=== PATIENT | female | born 1945 | race Caucasian/White ===

== ENCOUNTER 2016-09-27 10:18 | Emergency (ER) | payer OTHER, MEDICARE ==
[~2016-09-27] VITALS: Ht 165.1 cm; Wt 61.2 kg
[~2016-09-27 10:18] MED LIST: AUGMENTIN 875875 MG PO; AZITHROMYCIN500 MG PO; BACTRIM DS 8001 TAB PO; DULOXETINE HCL60 MG PO; SYMBICORT 160/41 PUF INH
[2016-09-27 10:28] VITALS: BP 123/80
--- NOTE | 2016-09-27 10:41 | ED UPPER/LOWER EXTREMITY COMPL ---
History of Present Illness General Chief Complaint: Upper Extremity Injury Stated Complaint: RT ELBOW PAIN Source: patient, old records Exam Limitations: no limitations Vital Signs & Intake/Output Vital Signs & Intake/Output Vital Signs Date Time Temp Pulse Resp B/P Pulse O2 O2 Flow FiO2 Ox Delivery Rate 09/27 1028 98.4 86 18 123/80 100 Room Air Allergies Coded Allergies: Sulfa (Sulfonamide Antibiotics) (Intermediate, HIVES, HEADACHE 12/08/15) aspirin (Intermediate, FACIAL SWELLING 12/08/15) gluten (ABDOMINAL PAIN 12/08/15) milk (DIARRHEA 12/08/15) Reconcile Medications Duloxetine HCl 60 MG CAPSULE. 1 CAP PO DAILY FIBROMYALGIA (Reported) Triage Note: 70 Y/O FEMALE C/O SWELLING TO R ELBOW S/P "BANGING" IT A FEW DAYS AGO. STATES IT WAS SORE FOR A FEW DAYS BUT THEN PT WOKE TODAY WITH SWELLING. DENIES OTHER COMPLAINTS Triage Nurses Notes Reviewed? yes Onset: Abrupt Duration: day(s): (2), constant Timing: recent history Severity: mild Severity Numbers: 3 Pain/Injury Location: Right: Elbow. Method of Injury: direct blow Modifying Factors: Worsens With: movement. Associated Symptoms: swelling HPI: This 70-year-old female with history of ulcerative colitis and fibromyalgia presents complaining of a 2 day history of dorsal right elbow pain that came on after she banged it on a kitchen counter. She states that since then she's had bruising and swelling over her elbow with pain with palpation and range of motion of the elbow. There is no difficulty with range of motion of the elbow, no shoulder restraint and pain. She is not taken anything for her symptoms. No numbness or tingling no difficulty with range of motion of the hand or wrist (DACIA KENNEDY,DAVID) Past History Travel History Traveled to [place] past 21 day No Medical History Any Pertinent Medical History? see below for history Neurological: NONE EENT: NONE Cardiovascular: NONE Respiratory: obstructive sleep apnea, pneumonia Gastrointestinal: ULCERATIVE, NO MILK AND NO GLUTEN Hepatic: NONE Renal: NONE Musculoskeletal: FIBROMYALGIA Psychiatric: NONE Endocrine: NONE Blood Disorders: NONE Cancer(s): NONE MANAGER ICU/Reproductive: NONE Surgical History Surgical History: RIGHT KIDNEY SURGERY Psychosocial History Who do you live with Spouse Services at Home None What is your primary language Polish Tobacco Use: Quit >30 days ago Family History Family History, If Any: MOTHER FH: congenital heart problem Hx Contributory? No (DAVID LAWSON) Review of Systems Review of Systems Constitutional: Reports: see HPI. All Other Systems: Reviewed and Negative Comments Review of systems: See HPI, All other systems negative. Constitutional, no chills no fever, no malaise HEENT: no sore throat no congestion, no ear pain Cardiovascular: No chest pain , no palpitation Skin, no rashes, no change in skin Respiratory: No dyspnea no cough no sputum GI: No nausea no vomiting, no diarrhea : No dysuria Muscle skeletal: oint pain, no joint swelling, no back pain Neurologic: No numbness no headache Psych: No stress Heme/endocrine: No bruising no bleeding Immunology: No lymphadenopathy (DAVID LAWSON) Physical Exam Physical Exam General Appearance: well developed/nourished, no apparent distress, alert, awake Comments: Well-developed well-nourished patient in no apparent distress. HEENT: Atraumatic, extraocular motion intact Neck: Supple, FROM Back: FROM Cardiovascular: Regular rate and rhythms no murmurs Respiratory:No respiratory distress. Patient speaking in full complete sentences. Shoulder: Atraumatic/Stable. FROM . Elbow: Healing ecchymosis and mild swelling noted over the olecranon PROCESS OF THE RIGHT ELBOW, tenderness to palpation or range of motion skin is intact Upper arm/Forearm: Atraumatic. Nontender. No edema, 5 out of 5 charge authorizer strength noted to bilateral upper extremities Hand/Wrist: Atraumatic/stable. Skin intact. FROM Pulses: Normal/equal radial pulses bilaterally. Brisk cap refill LOWER Extremities: full range of motion Neuro: Alert and oriented x3 Skin: Warm & dry;No appreciable rash on exposed skin Psych: Mood affect normal, normal memory normal judgment. (DAVID LAWSON) Progress Differential Diagnosis: contusion, dislocation, fracture, sprain, tendon injury, bursitis Diagnostic Imaging: Viewed by Me: Radiology Read. Discussed w/RAD: Radiology Read. Radiology Impression: ATIENT: SURINDER CORRALES PRESENT AGE: 70 PATIENT ACCOUNT NO: [id number] : 43 LOCATION: [facility] ORDERING PHYSICIAN: DAVID KENNEDY SERVICE DATE: 09/27/16 EXAM TYPE: RAD - XRY- ELBOW 3 OR MORE VIEWS, R EXAMINATION: XR ELBOW, RIGHT CLINICAL INFORMATION: Right elbow pain status post trauma. COMPARISON: None TECHNIQUE: Right elbow 4 views. of the right elbow. FINDINGS: Soft tissue swelling is noted over the posterior aspect of the elbow. There is a tiny bone fragment adjacent to the proximal ulna which could represent tiny avulsion fracture or chronic calcification at the triceps insertion. No other abnormality. Alignment is normal. No joint effusion is seen. IMPRESSION: Question tiny avulsion fracture olecranon process associated soft tissue swelling. DICTATED BY: AISHWARYA GREENBERG MD DATE/TIME DICTATED:09/27/161110 STAFF RADIATION THERAPIST:RANDY DATE/ TIME TRANSCRIBED:09/27/161110 CONFIDENTIAL, DO NOT COPY WITHOUT APPROPRIATE AUTHORIZATION. <Electronically signed in Other Vendor System> SIGNED BY: AISHWARYA GREENBERG MD 09/27/16 1116 (DAVID LAWSON) Plan of Care: Orders Procedure Date/time Status Durable Medical Equipment 09/27 1047 Active X-ray ordered patient medicated with Tylenol Discussed with her her x-ray results- posteriro long arm splint applied by bella storey intact prior to and after applicaton of splint. Sling was applied advised need for Tylenol for pain as needed follow-up with orthopedist provided as well as primary care physician return with any concerns she feels comfortable with plan (DAVID LAWSON) Departure Departure Time of Disposition: 1134 Disposition: HOME OR SELF CARE Condition: Stable Clinical Impression Primary Impression: Avulsion fracture Secondary Impressions: Traumatic bursitis Referrals: ALYSSA LINDER DO (PCP/Family) FRANCISCO J DIAL,VALERY Perez Additional Instructions: rest, tylenol for pain, keep arm elevated, follow-up with orthopedist Dr. santiago. Keep splint on at all times sling for comfort Departure Forms: Customer Survey General Discharge Information (DAVID LAWSON) PA/REGISTERED NURSE SURGICAL SERVICES Co-Sign Statement Statement: ED Attending supervision documentation- [x] I saw and evaluated the patient. I have also reviewed all the pertinent lab results and diagnostic results. I agree with the findings and the plan of care as documented in the PA's/REGISTERED NURSE SURGICAL SERVICES's documentation. [] I have reviewed the ED Record and agree with the PA's/REGISTERED NURSE SURGICAL SERVICES's documentation. [] Additions or exceptions (if any) to the PAs/REGISTERED NURSE SURGICAL SERVICES's note and plan are summarized below: [] (GWENDOLYN DISLA DO) Procedures Splinting Location: RUE Manual Alignment Performed: No Hand-Made Type: orthoglass Splint: POSTERIOR LONG ARM Splint Applied By: splint applied by me Pre-Proc Neuro Vasc Exam: normal Post-Proc Neuro Vasc Exam: normal (DAVID LAWSON)
--- NOTE | 2016-09-27 11:16 | RADIOLOGY REPORT ---
EXAMINATION: XR ELBOW, RIGHT CLINICAL INFORMATION: Right elbow pain status post trauma. COMPARISON: None TECHNIQUE: Right elbow 4 views. of the right elbow. FINDINGS: Soft tissue swelling is noted over the posterior aspect of the elbow. There is a tiny bone fragment adjacent to the proximal ulna which could represent tiny avulsion fracture or chronic calcification at the triceps insertion. No other abnormality. Alignment is normal. No joint effusion is seen. IMPRESSION: Question tiny avulsion fracture olecranon process associated soft tissue swelling.
== END 2016-09-27 11:51 ==
LOC: ERH 10:18
DX: M71.521 Other bursitis, not elsewhere classified, right elbow (principal); W22.09XA Striking against other stationary object, initial encounter
CPT/HCPCS: 73080-RT

== ENCOUNTER 2016-10-05 19:55 | Emergency (ER) | payer OTHER, MEDICARE ==
--- NOTE | 2016-10-05 20:56 | ED UPPER/LOWER EXTREMITY COMPL ---
History of Present Illness General Chief Complaint: Hand or Wrist Injury Stated Complaint: "?RT WRIST AND HAND INJURY S/P FALL -LOC" Source: patient Exam Limitations: no limitations Vital Signs & Intake/Output Vital Signs & Intake/Output Vital Signs Date Time Temp Pulse Resp B/P Pulse O2 O2 Flow FiO2 Ox Delivery Rate 10/05 2120 98.5 92 18 128/78 97 Room Air 10/05 2006 98.5 88 22 126/82 97 Room Air Allergies Coded Allergies: Sulfa (Sulfonamide Antibiotics) (Intermediate, HIVES, HEADACHE 12/08/15) aspirin (Intermediate, FACIAL SWELLING 12/08/15) gluten (ABDOMINAL PAIN 12/08/15) milk (DIARRHEA 12/08/15) Reconcile Medications Duloxetine HCl 60 MG CAPSULE.DR 1 CAP PO DAILY FIBROMYALGIA (Reported) Oxycodone HCl/Acetaminophen (Percocet 5-325 MG Tablet) 5 MG-325 MG TABLET 1 TAB PO TID PRN pain Triage Note: PER PT FELL 10 MINUTES AGO ON RT WRIST IN [place]AY, [place] PAIN NO HEAD STRIKE GIVEN TYLENOL Triage Nurses Notes Reviewed? yes HPI: 70-year-old female here with complaints of severe throbbing right wrist pain and swelling after she tripped in her driveway prior to arrival while smelling falling on outstretched hand injuring her right wrist. No previous injuries to the wrist, she does have a previous elbow fracture on that side. She denies any other injuries, no shortness far, is worse with palpation and motion. No neurologic symptoms. (XIOMARA ISAAC) Past History Travel History Traveled to [place] past 21 day No Medical History Any Pertinent Medical History? see below for history Neurological: NONE EENT: NONE Cardiovascular: NONE Respiratory: obstructive sleep apnea, pneumonia Gastrointestinal: ULCERATIVE, NO MILK AND NO GLUTEN Hepatic: NONE Renal: NONE Musculoskeletal: FIBROMYALGIA Psychiatric: NONE Endocrine: NONE Blood Disorders: NONE Cancer(s): NONE AUTOMOTIVE GLAZIER/Reproductive: NONE Surgical History Surgical History: RIGHT KIDNEY SURGERY Psychosocial History Who do you live with Spouse Services at Home None What is your primary language [place] Citizen Tobacco Use: Never used Family History Family History, If Any: MOTHER FH: congenital heart problem Hx Contributory? No (XIOMARA ISAAC) Review of Systems Review of Systems Constitutional: Reports: see HPI. EENTM: Reports: no symptoms. Respiratory: Reports: no symptoms. Cardiovascular: Reports: no symptoms. Gastrointestinal/Abdominal: Reports: no symptoms. Genitourinary: Reports: no symptoms. Musculoskeletal: Reports: see HPI. Skin: Reports: no symptoms. Neurological/Psychological: Reports: no symptoms. Hematologic/Endocrine: Reports: no symptoms. Immunological: Reports: no symptoms. All Other Systems: Reviewed and Negative (XIOMARA ISAAC) Physical Exam Physical Exam General Appearance: well developed/nourished Comments: Well-developed well-nourished no apparent distress. HEENT: Atraumatic, extraocular motion intact Neck: Supple, no lymphadenopathy Back: Nontender Respiratory: No respiratory distress Extremities: No edema, full range of motion Neuro: Alert and oriented x3 Psych: Mood affect normal, normal memory normal judgment. Skin: Warm and dry, no rash on exposed skin Right upper extremity, right wrist, tenderness is severe to the distal radius region dorsum, mild swelling. Range of motion severe limited, increased pain with range of motion, neurovascularly intact. No snuffbox tenderness. No head or finger pain or tenderness. (XIOMARA ISAAC) Progress Differential Diagnosis: compartment syndrome, contusion, dislocation, fracture, sprain, tendon injury Plan of Care: Orders Procedure Date/time Status XRY-WRIST COMPLETE-RIGHT 10/05 2008 Active Diagnostic Imaging: Viewed by Me: Radiology Read. Discussed w/RAD: Radiology Read. Radiology Impression: PATIENT: SURINDER CORRALES PRESENT AGE: 70 PATIENT ACCOUNT NO: [id number] : 43 LOCATION: [facility], [place] ORDERING PHYSICIAN: XIOMARA KENNEDY SERVICE DATE: 10/05/16 EXAM TYPE: RAD - XRY-WRIST COMPLETE-RIGHT EXAMINATION: XR WRIST, RIGHT CLINICAL INFORMATION: Fall. COMPARISON: None. TECHNIQUE: 4 views of the right wrist were obtained. FINDINGS: There is an impacted a transversely oriented fracture of the distal radius near the expected junction of the metaphysis and epiphysis. No other discrete fracture or dislocation. The carpal arcs are maintained. Suspected decreased bone mineral density. IMPRESSION: Impacted distal radial fracture. DICTATED BY: JUAN EVANS MD DATE/TIME DICTATED:10/05/162052 PRODUCT BUILDER:RANDY Comments: Right upper extremity well padded well molded volar splint applied with Ortho- Glass by myself, neurovascular intact postprocedure, secured with Piotr bandages. (XIOMARA ISAAC) Departure Departure Disposition: HOME OR SELF CARE Condition: Stable Clinical Impression Primary Impression: Distal radius fracture, right Qualifiers: Encounter type: initial encounter Fracture type: closed Fracture morphology: torus Qualified Code: S52.521A - Torus fracture of lower end of right radius, initial encounter for closed fracture Referrals: ALYSSA LINDER DO (PCP/Family) OSORIO DIAL,VINEET Additional Instructions: Rest, ice, stay in splint, elevate the hand and wrist as much as possible percocet , Motrin and Tylenol as needed for pain. Follow-up with orthopedist this week for reevaluation and casting Departure Forms: Customer Survey General Discharge Information Prescriptions: Current Visit Scripts Oxycodone HCl/Acetaminophen (Percocet 5-325 MG Tablet) 1 TAB PO TID PRN pain #15 TAB (XIOMARA ISAAC) PA/HAND COMPOSITOR Co-Sign Statement Statement: ED Attending supervision documentation- x I saw and evaluated the patient. I have also reviewed all the pertinent lab results and diagnostic results. I agree with the findings and the plan of care as documented in the PA's/HAND COMPOSITOR's documentation. [] I have reviewed the ED Record and agree with the PA's/HAND COMPOSITOR's documentation. [] Additions or exceptions (if any) to the PAs/HAND COMPOSITOR's note and plan are summarized below: [] (LEANDER DIAL,JOSE)
--- NOTE | 2016-10-05 20:59 | RADIOLOGY REPORT ---
EXAMINATION: XR WRIST, RIGHT CLINICAL INFORMATION: Fall. COMPARISON: None. TECHNIQUE: 4 views of the right wrist were obtained. FINDINGS: There is an impacted a transversely oriented fracture of the distal radius near the expected junction of the metaphysis and epiphysis. No other discrete fracture or dislocation. The carpal arcs are maintained. Suspected decreased bone mineral density. IMPRESSION: Impacted distal radial fracture.
[2016-10-05] MEDS ORDERED: PERCOCET 5-3251 EACH PO (21:02)
[2016-10-05 21:21] VITALS: BP 128/78
== END 2016-10-05 21:23 ==
LOC: ERH 19:55
DX: S52.501A Unspecified fracture of the lower end of right radius, initial encounter for closed fracture (principal); W01.0XXA Fall on same level from slipping, tripping and stumbling without subsequent striking against object, initial encounter; Y92.014 Private driveway to single-family (private) house as the place of occurrence of the external cause
CPT/HCPCS: 73110-RT

== ENCOUNTER → 2017-10-09 | Day surgery (SDC) | payer OTHER, MEDICARE ==
[~2017-10-09] VITALS: Ht 162.6 cm; Wt 61.7 kg
[~2017-10-09] MED LIST changes: +PERCOCET 5-3251 EACH PO
--- NOTE | 2017-10-09 13:31 | Operative Report ---
Operative/Inv Procedure Report Surgery Date: 10/09/17 Name of Procedure: Cataract extraction with intraocular lens implantation right eye Pre-Operative Diagnosis: Age-related cataract right eye Post-Operative Diagnosis: Same Estimated Blood Loss: none Surgeon/Recreational Counselor: Joon DIAL,Ameya Ward Anesthesia: local monitored anesthesi Complications: None Operative/Procedure Note Note: Preoperatively the patient was noted to have 20/30 vision in the right eye with a decrease with glare testing down to 20/50. The risks, benefits, and alternatives to surgery were discussed at length with the patient. Informed consent was obtained. The patient was brought to the operating room where the right eye was prepped and draped in the normal sterile fashion. A speculum was placed on the right eye with good exposure. A stab incision was made using a paracentesis blade. Intracameral lidocaine was placed. Viscoelastic was used to form the anterior chamber. A clear corneal incision was made using keratome blade. A continuous curvilinear capsulorrhexis was made using a cystotome needle followed by Utrata forceps. There was no extension of the rhexis. Hydrodissection was performed using balanced salt solution. The cataract was removed using a stop and chop technique. Residual cortex was removed using coaxial irrigation and aspiration. The capsule was polished using irrigation and aspiration and the posterior capsule was cleaned using a balanced salt solution jet. There was no residual lens material inside the eye. The capsular bag was reformed using viscoelastic. An intraocular lens SA60WF of power 18.5 was verified and confirmed. It was loaded into an injector and injected into the eye. The lens was placed entirely within the capsular bag. Viscoelastic was evacuated using irrigation and aspiration. The wounds were stromally hydrated and the eye filled to physiologic pressure using balanced salt solution. Intracameral cefuroxime was placed. Speculum was removed and a shield was placed on the eye. The patient was brought to the recovery area without incident. Instructions were given to follow-up the next day for routine postoperative care.
== END ==
LOC: STS 02:09
DX: H25.9 Unspecified age-related cataract (principal); G47.33 Obstructive sleep apnea (adult) (pediatric); Z87.891 Personal history of nicotine dependence
CPT/HCPCS: J2250; V2632

== ENCOUNTER → 2017-10-30 | Day surgery (SDC) | payer OTHER, MEDICARE ==
[~2017-10-30] VITALS: Ht 162.6 cm; Wt 61.7 kg
--- NOTE | 2017-10-30 11:30 | Operative Report ---
Operative/Inv Procedure Report Surgery Date: 10/30/17 Name of Procedure: Cataract extraction with intraocular lens implantation left eye Pre-Operative Diagnosis: Age-related cataract left eye Post-Operative Diagnosis: Same Estimated Blood Loss: none Surgeon/Acting Section Chief: Joon DIAL,Ameya Ward Anesthesia: local monitored anesthesi Complications: None Operative/Procedure Note Note: Preoperatively the patient was noted to have 20/25 vision in the left eye with a decrease with glare testing down to 20/50. The risks, benefits, and alternatives to surgery were discussed at length with the patient. Informed consent was obtained. The patient was brought to the operating room where the left eye was prepped and draped in the normal sterile fashion. A speculum was placed on the left eye with good exposure. A stab incision was made using a paracentesis blade. Intracameral lidocaine was placed. Viscoelastic was used to form the anterior chamber. A clear corneal incision was made using keratome blade. A continuous curvilinear capsulorrhexis was made using a cystotome needle followed by Utrata forceps. There was no extension of the rhexis. Hydrodissection was performed using balanced salt solution. The cataract was removed using a stop and chop technique. Residual cortex was removed using coaxial irrigation and aspiration. The capsule was polished using irrigation and aspiration and the posterior capsule was cleaned using a balanced salt solution jet. There was no residual lens material inside the eye. The capsular bag was reformed using viscoelastic. An intraocular lens SA60WF of power 19.5 was verified and confirmed. It was loaded into an injector and injected into the eye. The lens was placed entirely within the capsular bag. Viscoelastic was evacuated using irrigation and aspiration. The wounds were stromally hydrated and the eye filled to physiologic pressure using balanced salt solution. Intracameral cefuroxime was placed. Speculum was removed and a shield was placed on the eye. The patient was brought to the recovery area without incident. Instructions were given to follow-up the next day for routine postoperative care.
== END ==
LOC: STS 04:02
DX: H25.9 Unspecified age-related cataract (principal); G47.33 Obstructive sleep apnea (adult) (pediatric)
CPT/HCPCS: J2250; V2632